=== PATIENT | female | born 1990 | race Caucasian/White ===

== ENCOUNTER 2018-08-25 10:48 | Inpatient (IN) ==
[2018-08-25] MEDS ORDERED: HUMULIN R IV ONE (11:08)
[2018-08-25] MEDS ORDERED: NS 1,000 ML IV ONE (11:08)
[2018-08-25] MEDS ORDERED: ZOFRAN IV ONE (11:09)
[2018-08-25 11:38] LABS: ALLEN TEST YES; BLOOD TYPE ARTERIAL; METHB 0.7 % (0.0-1.5); O2(CT) 21.5 mL/dL (15.0-23.0); O2HB 96.3 % (95.0-99.0); PO2(98.6) 121 mmHg (60-100); SAMPLE BLOOD; SAO2 99.3 % (95.0-100.0); THB 15.8 g/dL (11.5-17.4)
[2018-08-25 11:40] LABS: pH(98.6) 6.96 (7.35-7.45)
[2018-08-25 11:41] LABS: MODALITY ROOM AIR; PCO2(98.6) 10 mmHg (35-45)
[2018-08-25] MEDS ORDERED: HUMULIN R 100 UNIT in NS 100 ML IV SCH ×2 (11:45→12:51)
[2018-08-25 12:13] LABS: BASO# 0.03 X1000 (0.0-0.2); BASO% 0.2 % (0.0-0.8); EOS# 0.02 X1000 (0.0-0.7); EOS% 0.1 % (0.0-10.0); HEMATOCRIT 47.7 % (37.0-47.0); HEMOGLOBIN 16.6 g/dL (12.0-16.0); IMM GRAN# 0.11 X1000 (0.0-0.04); IMM GRAN% 0.7 % (0.0-0.5); LYMPH# 1.16 X1000 (1.2-3.4); LYMPH% 7.6 % (20.5-51.1); MCH 30.2 PG (27-31); MCHC 34.8 g/dL (33-37); MCV 86.9 FL (81-99); MONO# 0.16 X1000 (0.11-0.59); MONO% 1.1 % (1.7-9.3); MPV 12.8 FL (7.4-10.4); NEUT% 90.3 % (42.2-75.2); PLT 285 X1000 (130-400); RBC 5.49 XMIL (4.2-5.4); RDW 12.7 % (11.5-14.5); WBC 15.18 X1000 (4.8-10.8)
[2018-08-25 12:20] LABS: AGAP 23; ALB/GLOB RATIO 1.3; ALBUMIN 4.5 g/dL (3.5-5.0); ALKALINE PHOSPHATASE 126 U/L (32-104); BUN 12 mg/dL (8-22); CALCIUM 7.8 mg/dL (8.8-10.2); CHLORIDE 104 mmol/L (98-107); COSMO 276; CREATININE 0.9 mg/dL (0.5-0.9); ESTIMATED GFR > 60; GOT 7 U/L (10-30); GPT 7 U/L (10-36); MAGNESIUM 1.8 mg/dL (1.5-2.7); POTASSIUM 3.5 mmol/L (3.5-5.1); SODIUM 129 mmol/L (136-145); TCO2 2 mmol/L (25-35); TOTAL BILIRUBIN 0.19 mg/dL (0.20-1.00)
[2018-08-25 12:21] LABS: GLUCOSE 396 mg/dL (70-104)
[2018-08-25] MEDS ORDERED: SODIUM BICARBONATE 8.4% IV PUSH ONE (12:55)
[2018-08-25 13:05] LABS: BANDS 6 % (0-1); HYPOCHROM 1+; LYMPHS 8 % (21-51); SEGS 86 % (42-75)
[2018-08-25 13:06] LABS: LARGE PLATELETS 1+
[2018-08-25] MEDS ORDERED: ZOFRAN IV PRN (13:09)
[2018-08-25] MEDS ORDERED: TYLENOL PO PRN (13:09)
--- NOTE | 2018-08-25 14:31 | HISTORY AND PHYSICAL ---
PRIMARY CARE PROVIDER: No one but plans on getting established with Dr. Larsen on Monday. PRIMARY PANEL EDGE SEALER: Dr. Solorzano out of [place]. CHIEF COMPLAINT: Vomiting, shortness of breath. HISTORY OF PRESENT ILLNESS: Ms. Cristina Garza is a 28-year-old female with a medical history of diabetes mellitus type 1 since at least 2013, hypothyroidism, and abscesses in the past. She is here with 4 days complaint of vomiting and shortness of breath with some upper abdominal to ribcage pain, headache, and night sweats. Denies any fever or chills or any urinary- type symptoms at all. She has not been coughing up any phlegm. She also is recently with a new baby as of 02/22/2018 and quit smoking at the same time. Laboratory data reveals that she is severely acidotic with elevated blood glucose levels and an elevated anion gap, so we will admit to ICU, start on DKA protocol. Will work up her leukocytosis to evaluate for any type of infection. PAST MEDICAL HISTORY: 1. Diabetes mellitus type 1 since 2013. 2. Hypothyroidism. 3. Frequent abscesses in the past but it has been a while. PAST SURGICAL HISTORY: 1. Right buttock incision and drainage. 2. section, 02/22/2018. SOCIAL HISTORY: Quit smoking towards the beginning of 2018. She was a smoker from 2010 to 2018 less than 1 pack per day. Drinks alcohol maybe once every 6 months. Denies any illicit drug use. Currently a new mother of a little boy, who apparently is oxygen-dependent. FAMILY HISTORY: Mother had a heart attack at age 47. Father has hypertension. ALLERGIES: No known drug allergies. HOME MEDICATIONS: 1. Lispro 15 units subcutaneously sliding scale. 2. Lantus 25 units subcutaneously twice daily. 3. Synthroid 100 mcg p.o. daily. REVIEW OF SYSTEMS: A 14-point review of systems are complete and all were negative except for those mentioned above in HPI. PHYSICAL EXAMINATION: VITAL SIGNS: Temperature 97.4, heart rate 107, respiratory rate 23, blood pressure 124/95, O2 saturation 100% on room air. GENERAL: Ms. Cristina Garza is a 28-year-old female. She is in no acute distress. She is able to answer questions appropriately. HEENT: Atraumatic, normocephalic. Pupils equal, round, and reactive to light. Extraocular movements intact. Mucous membranes are dry. NECK: Trachea midline. CARDIOVASCULAR: S1, S2, regular rate and rhythm. No rubs, gallops, or murmurs. No lower extremity edema, +2 dorsalis and radial pulses. Negative JVD or carotid bruits. PULMONARY: Clear to auscultate, bilateral breath sounds. No accessory muscle use or work of breathing noted. GASTROINTESTINAL: Soft, nontender, nondistended, positive bowel sounds x4. EXTREMITIES: Moves all extremities equally with full range of motion. NEUROLOGIC: A and O x3, follows commands. Sensory is intact. SKIN: Warm, dry, intact. LABORATORY DATA: White blood cells 15,000, hemoglobin 16, hematocrit 47, platelet count 285. ABG: pH 6.96, pCO2 10, pO2 121, bicarb 3, base excess -28. Oxyhemoglobin 97.3. Lactate 1.5. Sodium 129, potassium 3.5, BUN 12, creatinine 0.9, glucose 396, calcium 7.8, magnesium 1.8, bilirubin 0.19, AST 7, ALT 7, albumin is 4.5. IMAGING: None yet. Waiting for EKG as well. ASSESSMENT AND PLAN: 1. Diabetes mellitus type 1 now with diabetic ketoacidosis and pretty significant acidosis. She has received sodium bicarbonate, started on IV fluids, and started on the algorithm 1 diabetic ketoacidosis protocol. Will watch her in the ICU, might could even go to [facility] later today. 2. Hypothyroidism. Checking a TSH and T4. Continue her Synthroid. 3. History of abscesses. She denies any recently. 4. Leukocytosis likely reactive due to the diabetic ketoacidosis. Cultures have been ordered and obtained. Will monitor for any signs of infection. 5. Nausea, vomiting. Antiemetics as needed. Should improve once acidosis improves. 6. Deep venous thrombosis prophylaxis, Lovenox. Dictated by STANISLAV Vasques for Caleb Pfeiffer MD cc: STANISLAV Vasques MD
[2018-08-25 14:49] LABS: ACETONE SERUM SMALL (NEGATIVE); AMYLASE 8 U/L (20-200); CK PROFILE 21 U/L (24-173); LIPASE 11 U/L (13-60)
--- NOTE | 2018-08-25 15:00 | Diag Imaging Result Doc PS360 ---
EXAM: FLAT/UPRIGHT ABD/1 VIEW CHEST INDICATION: sob; n/v TECHNIQUE: 3 views COMPARISON: None. FINDINGS: There are nonspecific colonic gas patterns. The colon is only mildly distended. There is no obstructive bowel pattern. There is no evidence of large volume free abdominal gas. There is no evidence of organomegaly. The lungs are grossly clear. There is no discrete pleural fluid collection or pneumothorax. The cardiomediastinal silhouette and central vasculature are grossly unremarkable. IMPRESSION: Nonspecific abdomen and no evidence of acute chest pathology. Electronically signed by Surendra Hurley 08/25/2018 2:57 PM
[2018-08-25 15:42] LABS: FREE T4 0.64 ng/dL (0.93-1.70); TSH 9.68 uIUmL (0.27-4.20)
[2018-08-25 15:46] LABS: HEMOGLOBIN A1C 17.8 % (4.8-6.0)
[2018-08-25] MEDS ORDERED: POTASSIUM CHLORIDE 10% LIQUID PO ONE (16:06)
[2018-08-25] MEDS ORDERED: POTASSIUM CHLORIDE 20% LIQUID ONE (16:16)
[2018-08-25 16:55] LABS: URINE SOURCE CLEAN CATCH
[2018-08-25 17:09] LABS: BILIRUBIN URINE NEGATIVE (NEGATIVE); BLOOD URINE TRACE (NEGATIVE); COLOR YELLOW; GLUCOSE URINE >1000 mg/dL (NEGATIVE); KETONE URINE >150 mg/dL (NEGATIVE); LEUKOCYTES URINE TRACE (NEGATIVE); NITRITE URINE NEGATIVE (NEGATIVE); PROTEIN URINE 200 mg/dL (NEGATIVE); SP GRAVITY URINE 1.025; TURBIDITY URINE CLEAR (CLEAR); UROBILINOGEN URINE NORMAL (NORMAL)
[2018-08-25 17:10] LABS: AGAP 21; BUN 11 mg/dL (8-22); CALCIUM 9.2 mg/dL (8.8-10.2); CHLORIDE 108 mmol/L (98-107); COSMO 275; CREATININE 0.8 mg/dL (0.5-0.9); GLUCOSE 194 mg/dL (70-104); POTASSIUM 3.9 mmol/L (3.5-5.1); SODIUM 135 mmol/L (136-145); TCO2 6 mmol/L (25-35)
[2018-08-25 17:13] LABS: PHOSPHORUS 0.8 mg/dL (2.7-4.5)
[2018-08-25 17:13] LABS: UR EPITHELIAL CELLS >10 /HPF (<10); URINE BACTERIA 2+ /HPF; URINE RBC <10 /HPF (<10)
[2018-08-25 17:18] LABS: UR AMPHETAMINES QUAL NONE DETECTED (NONE DETECT); UR BARBITUATES QUAL NONE DETECTED (NONE DETECT); UR BENZODIAZEPIN QUAL NONE DETECTED (NONE DETECT); UR CANNABINOIDS QUAL NONE DETECTED (NONE DETECT); UR COCAINE QUAL NONE DETECTED (NONE DETECT); UR METHADONE QUAL NONE DETECTED (NONE DETECT); UR OPIATES QUAL NONE DETECTED (NONE DETECT); UR OXYCODONE QUAL NONE DETECTED (NONE DETECT); UR PCP QUAL NONE DETECTED (NONE DETECT)
[2018-08-25] MEDS: NS 1,000 ML IV SCH ×4 (17:20→20:39)
[2018-08-25] MEDS ORDERED: POTASSIUM CHLORIDE 20% LIQUID PO PRN (17:45)
[2018-08-25] MEDS ORDERED: POTASSIUM CHLORIDE 40 MEQ/SWI 40 MEQ/100 ML IVPB IV PRN (17:45)
[2018-08-25] MEDS: D5 NS 1,000 ML IV SCH (17:52)
--- NOTE | 2018-08-25 17:54 | HISTORY AND PHYSICAL ---
ADDENDUM TO HISTORY AND PHYSICAL: I saw Ms. Garza today in the ICU. She has already been seen by the nurse practitioner. I have reviewed the H and P and details. I have also seen and examined Ms. Garza and I have reviewed her labs and imaging data. Briefly, Ms. Garza is a diabetic patient, type 1, who is on insulin regimen and follows up with an otr driver in [place]. Referred that she did have some diarrhea about a week ago and that got better, but then subsequently she started having some shortness of breath and vomiting, came to the emergency department and was found to be in DKA. Was then admitted for further medical care. ASSESSMENT: 1. Diabetic ketoacidosis with severe acidosis. Presenting bicarb was 2, pH was 6.96. Patient was given a push of bicarb and has been started on the diabetic ketoacidosis protocol. 2. Clinical volume depletion. Will continue with IV fluids. 3. Diabetes mellitus. 4. Hypothyroidism with elevated TSH consistent with inadequate supplementation. I have gone up on the patient's thyroid medications to 112 mEq on daily basis. Patient will need to repeat the TSH in about 2 weeks from now. 5. I do agree with the history and physical and the plan that has been laid out in detail in the nurse practitioner's note. cc: Caleb Pfeiffer MD
[2018-08-25] MEDS ORDERED: SODIUM BICARBONATE 8.4% 100 MEQ in STERILE WATER INJ. 500 ML IV PRN (18:00)
[2018-08-25] MEDS ORDERED: MAGNESIUM SULFATE 2 GM/S.W.I. 2 GM/50 ML IVPB IV PRN (18:00)
[2018-08-25] MEDS: POTASSIUM CHLORIDE 10% LIQUID PO PRN ×2 (18:10→23:06)
[2018-08-25] MEDS ORDERED: COMPAZINE IV PRN (18:15)
[2018-08-25] MEDS ORDERED: COMPAZINE PO PRN (18:15)
[2018-08-25] MEDS: SODIUM PHOSPHATE 30 MMOL in D5W 250 ML IV PRN (20:26)
[2018-08-25 22:39] LABS: AGAP 16; BUN 7 mg/dL (8-22); CALCIUM 7.4 mg/dL (8.8-10.2); CHLORIDE 114 mmol/L (98-107); COSMO 283; CREATININE 0.7 mg/dL (0.5-0.9); ESTIMATED GFR > 60; GLUCOSE 227 mg/dL (70-104); MAGNESIUM 1.5 mg/dL (1.5-2.7); POTASSIUM 3.9 mmol/L (3.5-5.1); SODIUM 139 mmol/L (136-145); TCO2 9 mmol/L (25-35)
[2018-08-26] MEDS: D5 NS 1,000 ML IV SCH ×2 (00:05→06:21)
[2018-08-26 01:28] LABS: ESTIMATED GFR > 60
[2018-08-26 01:29] LABS: AGAP 13; BUN 6 mg/dL (8-22); CALCIUM 7.3 mg/dL (8.8-10.2); CHLORIDE 116 mmol/L (98-107); COSMO 283; CREATININE 0.7 mg/dL (0.5-0.9); GLUCOSE 269 mg/dL (70-104); PHOSPHORUS 1.2 mg/dL (2.7-4.5); POTASSIUM 3.6 mmol/L (3.5-5.1); SODIUM 138 mmol/L (136-145); TCO2 9 mmol/L (25-35)
[2018-08-26] MEDS: POTASSIUM CHLORIDE 10% LIQUID PO PRN ×2 (01:52→09:22)
[2018-08-26] MEDS: NS 1,000 ML IV SCH (04:14)
[2018-08-26 05:23] LABS: ALLEN TEST YES; BE -13.6 mmoll (-3.0-3.0); BLOOD TYPE ARTERIAL; HCO3-(ACT) 14.3 mmoll (20.0-26.0); METHB 0.8 % (0.0-1.5); O2(CT) 18.1 mL/dL (15.0-23.0); O2HB 96.4 % (95.0-99.0); PCO2(98.6) 24 mmHg (35-45); PO2(98.6) 118 mmHg (60-100); SAMPLE BLOOD; SAO2 98.5 % (95.0-100.0); THB 13.2 g/dL (11.5-17.4); pH(98.6) 7.28 (7.35-7.45)
[2018-08-26 05:24] LABS: MODALITY ROOM AIR
[2018-08-26 06:35] LABS: INR 1.16; PROTIME 15.8 Seconds (11.0-16.0); PTT 21.4 Seconds (22.3-41.8)
[2018-08-26 06:36] LABS: BASO# 0.02 X1000 (0.0-0.2); BASO% 0.3 % (0.0-0.8); EOS# 0.08 X1000 (0.0-0.7); HEMATOCRIT 34.1 % (37.0-47.0); HEMOGLOBIN 12.1 g/dL (12.0-16.0); LYMPH# 2.51 X1000 (1.2-3.4); LYMPH% 32.9 % (20.5-51.1); MCHC 35.5 g/dL (33-37); MCV 84.4 FL (81-99); MONO# 0.83 X1000 (0.11-0.59); MONO% 10.9 % (1.7-9.3); MPV 12.7 FL (7.4-10.4); NEUT% 54.9 % (42.2-75.2); PLT 196 X1000 (130-400); RBC 4.04 XMIL (4.2-5.4); RDW 12.1 % (11.5-14.5); WBC 7.64 X1000 (4.8-10.8)
[2018-08-26] MEDS: SYNTHROID PO SCH (06:59)
[2018-08-26] MEDS ORDERED: SYNTHROID PO SCH (07:00)
[2018-08-26 07:08] LABS: AGAP 9; ALB/GLOB RATIO 1.2; ALKALINE PHOSPHATASE 77 U/L (32-104); BUN 5 mg/dL (8-22); CALCIUM 7.2 mg/dL (8.8-10.2); CHLORIDE 117 mmol/L (98-107); COSMO 282; CREATININE 0.6 mg/dL (0.5-0.9); ESTIMATED GFR > 60; GLUCOSE 253 mg/dL (70-104); GOT 6 U/L (10-30); GPT < 5 U/L (10-36); POTASSIUM 3.4 mmol/L (3.5-5.1); SODIUM 138 mmol/L (136-145); TCO2 12 mmol/L (25-35); TOTAL BILIRUBIN 0.37 mg/dL (0.20-1.00); TOTAL PROTEIN 5.5 g/dL (6.3-8.3)
[2018-08-26 07:13] LABS: PHOSPHORUS 0.7 mg/dL (2.7-4.5)
[2018-08-26] MEDS ORDERED: D5 1/2 NS + KCL 20 MEQ 1,000 ML IV SCH (07:30)
[2018-08-26] MEDS: SODIUM PHOSPHATE 30 MMOL in D5W 250 ML IV PRN (08:20)
[2018-08-26] MEDS: LOVENOX SUBQ SCH (08:20)
[2018-08-26 09:11] LABS: AGAP 11; BUN 5 mg/dL (8-22); CALCIUM 7.2 mg/dL (8.8-10.2); CHLORIDE 116 mmol/L (98-107); COSMO 283; CREATININE 0.5 mg/dL (0.5-0.9); ESTIMATED GFR > 60; GLUCOSE 212 mg/dL (70-104); POTASSIUM 3.6 mmol/L (3.5-5.1); SODIUM 140 mmol/L (136-145); TCO2 13 mmol/L (25-35)
[2018-08-26 09:14] LABS: PHOSPHORUS 0.7 mg/dL (2.7-4.5)
[2018-08-26] MEDS: 1/2 NS + KCL 20 MEQ 1,000 ML IV SCH ×2 (10:48→20:16)
--- NOTE | 2018-08-26 10:51 | PROGRESS NOTE ---
DATE: 08/26/2018 SUBJECTIVE: This morning, Ms. Garza refers to be doing a lot better. No nauseation. No abdominal pain. She thinks she will be able to eat. OBJECTIVE: Vital signs: Blood pressure is 108/70, pulse is 83, respiration 13, temperature is 98.4 degrees. General: Ms. Garza is a 28-year-old female. She is in bed. No distress. HEENT: Mucosa is pink and moist. Anicteric and acyanotic. Neck: Supple. Chest: Clear to auscultation. No crepitations. No rhonchi. Cardiovascular: Regular rate and rhythm. Abdomen: Soft, nontender. Bowel sounds present. Extremities: No pedal edema. Distal pulses present. PHP DEVELOPER: Patient is awake, alert, and oriented. There is no focal neurological deficit. LABORATORY DATA: This morning, WBC is down to 7.64, hemoglobin is 12.1, platelet count of 196,000. Chemistry is also reviewed. Sodium is 140, potassium is 3.6, chloride is 116, bicarb is 13, gap is 11, glucose is 212, phosphorus is 0.7, which has been replaced. So far, blood cultures have not grown anything. Urinalysis was unremarkable for any suspicious infection. ASSESSMENT: 1. Diabetic ketoacidosis is currently resolved. We will start the patient on Lantus and sliding scale and transition her off the protocol. 2. Clinical volume depletion. We are going to continue with the IV fluids. We will, however, change to half-normal saline with potassium for baseline fluid. 3. Hypothyroidism. We will continue with the current supplements. 4. Diabetes mellitus type 1. The patient is on insulin regimen and we will plan to continue her home regimen and titrate it accordingly. PLAN: So, in general, I think Ms. Garza is doing a lot better today. She has not nauseated. We are going to feed her, after which we will give her 25 units of Lantus and let the drip overlap for 2 hours. At the end of the 2 hours, we will turn off the drip and supplement her needs with just sliding scale. We will also continue with IV fluids. Repeat her chemistry 4 hours from now. If she continues to be stable, we will be able to transfer her out of the unit. cc: Caleb Pfeiffer MD Addendum: Patient tolerated meals well. Doing ok. Hemodynamically stable. Will transfer to medical floor. Possible discharge home tomorrow. ELI
[2018-08-26] MEDS ORDERED: HUMULIN R SUBQ SCH (11:00)
[2018-08-26] MEDS: LANTUS INSULIN SUBQ SCH ×2 (11:20→20:07)
[2018-08-26 13:37] LABS: ESTIMATED GFR > 60
[2018-08-26 13:52] LABS: AGAP 11; BUN 3 mg/dL (8-22); CALCIUM 7.5 mg/dL (8.8-10.2); CHLORIDE 110 mmol/L (98-107); COSMO 279; CREATININE 0.6 mg/dL (0.5-0.9); GLUCOSE 292 mg/dL (70-104); PHOSPHORUS 1.5 mg/dL (2.7-4.5); POTASSIUM 3.5 mmol/L (3.5-5.1); SODIUM 136 mmol/L (136-145); TCO2 15 mmol/L (25-35)
[2018-08-26] MEDS: HUMULIN R SUBQ SCH ×2 (15:16→20:00)
[2018-08-26] MEDS: HUMALOG SUBQ SCH (16:58)
[2018-08-27 06:36] LABS: AGAP 11; BUN 2 mg/dL (8-22); CALCIUM 7.7 mg/dL (8.8-10.2); CHLORIDE 115 mmol/L (98-107); COSMO 285; CREATININE 0.4 mg/dL (0.5-0.9); ESTIMATED GFR > 60; GLUCOSE 94 mg/dL (70-104); POTASSIUM 2.9 mmol/L (3.5-5.1); SODIUM 145 mmol/L (136-145); TCO2 19 mmol/L (25-35)
[2018-08-27] MEDS: SYNTHROID PO SCH (06:37)
[2018-08-27] MEDS: HUMULIN R SUBQ SCH ×2 (06:38→11:07)
[2018-08-27] MEDS: 1/2 NS + KCL 20 MEQ 1,000 ML IV SCH (06:41)
[2018-08-27] MEDS: HUMALOG SUBQ SCH ×3 (07:19→21:08)
--- NOTE | 2018-08-27 08:06 | EKG Report ---
Test Performed on : 08/26/2018 06:17:50 AM Test Reason : dka Blood Pressure : / mmHG Vent. Rate : 090 BPM Atrial Rate : 090 BPM P-R Int : 150 ms QRS Dur : 088 ms QT Int : 416 ms P-R-T Axes : 046 019 045 degrees QTc Int : 508 ms Normal sinus rhythm. Nonspecific T wave abnormality Prolonged QT Abnormal ECG No previous ECGs available Confirmed by Alivia CORDOVA, Ajit ([id number]) on 08/27/2018 9:17:35 AM
[2018-08-27] MEDS: LANTUS INSULIN SUBQ SCH ×2 (11:07→21:06)
[2018-08-27] MEDS: LOVENOX SUBQ SCH (11:07)
[2018-08-27] MEDS ORDERED: POTASSIUM CHLORIDE 60 MEQ in NS 500 ML IV ONE (12:59)
[2018-08-27] MEDS ORDERED: SODIUM PHOSPHATE 35 MMOL in NS 250 ML IV ONE (13:01)
--- NOTE | 2018-08-27 13:56 | PROGRESS NOTE ---
DATE: 08/27/2018 SUBJECTIVE: Patient reports feeling fine. Denies any nausea or vomiting. OBJECTIVE: Vital Signs: Temperature 98.1 degrees, heart rate 92, respiratory rate 18, and blood pressure 124/81, O2 saturation 98% on room air. General: This is a 28-year-old female lying in bed in no acute distress. Cardiovascular: S1, S2 heard. No murmurs, gallops, or rubs. Regular rate and rhythm. Respiratory: Clear bilaterally to auscultation. No work of breathing or using accessory muscles. Abdomen: Soft. Nontender to palpation. Bowel sounds present. No organomegaly. Extremities: No clubbing, cyanosis, or edema. Peripheral pulses present in both legs. Neurological: Patient alert and oriented x3. Moves all 4 extremities. LABORATORY DATA: Reviewed. ASSESSMENT AND PLAN: 1. Diabetic ketoacidosis resolved. Patient is on Lantus and sliding scale insulin, moderate level. We found out that this patient has potassium 2.9 as well as phosphorus from yesterday that was very low. We are going to recheck it today, and is 1.4. We are going to replenish both electrolytes and will check it tomorrow. 2. Hypothyroidism. Will continue with home medications. 3. Diabetes mellitus type 2. Poorly controlled with hemoglobin A1c of 17.8. Patient advised properly about the long-term consequence of not having a good diabetes. 4. Disposition: If electrolytes are okay tomorrow, she can be discharged. cc: Anup Kirkpatrick MD
[2018-08-27] MEDS: NS 1,000 ML IV SCH (14:24)
[2018-08-28] MEDS: NS 1,000 ML IV SCH (06:21)
[2018-08-28] MEDS: SYNTHROID PO SCH (06:52)
[2018-08-28] MEDS: HUMALOG SUBQ SCH ×2 (06:53→12:35)
[2018-08-28 07:05] LABS: HEMATOCRIT 31.7 % (37.0-47.0); HEMOGLOBIN 11.5 g/dL (12.0-16.0); MCH 30.9 PG (27-31); MCHC 36.3 g/dL (33-37); MCV 85.2 FL (81-99); RBC 3.72 XMIL (4.2-5.4); RDW 12.4 % (11.5-14.5); WBC 6.18 X1000 (4.8-10.8)
[2018-08-28 07:35] LABS: AGAP 11; BUN 6 mg/dL (8-22); CALCIUM 7.5 mg/dL (8.8-10.2); CHLORIDE 109 mmol/L (98-107); COSMO 283; CREATININE 0.3 mg/dL (0.5-0.9); ESTIMATED GFR > 60; GLUCOSE 114 mg/dL (70-104); PHOSPHORUS 3.3 mg/dL (2.7-4.5); POTASSIUM 2.7 mmol/L (3.5-5.1); SODIUM 143 mmol/L (136-145); TCO2 23 mmol/L (25-35)
[2018-08-28] MEDS: LOVENOX SUBQ SCH (10:05)
[2018-08-28] MEDS: LANTUS INSULIN SUBQ SCH (10:12)
[2018-08-28 12:08] VITALS: BP 101/61
--- NOTE | 2018-08-28 20:49 | DISCHARGE SUMMARY ---
ADMISSION DATE: 08/25/2018 DISCHARGE DATE: 08/28/2018 DISPOSITION: Home. FOLLOWUP: 1. Will be with Dr. Alex Larsen. 2. dietitian. CONSULTATION DURING THIS ADMISSION: None. IMAGING STUDIES OF SIGNIFICANCE: A KUB showed no specific abdominal pathology. ADMISSION DIAGNOSES: 1. Diabetic ketoacidosis. 2. Severe volume depletion. 3. Hypothyroidism. DIAGNOSES AT THE TIME OF DISCHARGE: 1. Uncontrolled diabetes mellitus with diabetic ketoacidosis on presentation, resolved. 2. Diabetes type 1 with presenting A1c of 17.8 consistent with noncompliance. 3. Clinical volume depletion, improved. 4. Hypothyroidism. 5. Medical noncompliance. Patient has been advised. DISCHARGE MEDICATIONS: 1. Insulin glargine 25 units b.i.d. 2. Levothyroxine 112 mcg p.o. daily. 3. Lispro 3 times per day with meals. PRESENTING COMPLAINT: Vomiting and shortness of breath. HISTORY OF PRESENTING COMPLAINT: Ms. Garza is a 28-year-old female who is known to have diabetes mellitus type 1 and hypothyroidism, presented to the emergency department because of generalized weakness after vomiting, also shortness of breath. The patient was evaluated. Was found to have a bicarb of 2, on admission was remarkably dehydrated, was evaluated and admitted to the ICU for critical care management. HOSPITAL COURSE: Ms. Garza was admitted to the ICU, adequately hydrated. DKA protocol was instituted. She did respond very well to the protocol and she was transferred out of the ICU after a day in the unit. She continued to improve. Glucose was much better controlled and hydration status also improved. She was able to tolerate her diabetic diet. This morning, Ms. Garza refers to be feeling a whole lot better. She is stable for discharge. Her vitals: Blood pressure is 101/62, pulse is 79, respiration is 20, temperature is 98.6. The patient is saturating 100% on room air. Physical exam is unremarkable. Ms Garza is clinically stable for discharge. All the discharge instructions have been discussed with her and she voiced understanding. She has been given a prescription for her home insulin as well as her thyroid medications and she has been counseled on compliance and also compliance with medication and with medical followup appointments. TIME SPENT: Time spent for discharge is 37 minutes. cc: MD Alex Godinez MD [facility]
== END 2018-08-28 12:50 | disposition home or self-care (01) | DRG 639 ==
LOC: ED 10:48 → ICU 13:44 → SUATTDRO 13:44 → 3N 08-27 07:42
PROVIDERS: ATTEND Internal Medicine
CPT/HCPCS: 74022; 80048; 80053; 80061; 80101; 80301; 80307; 80324; 80345; 80346; 80353; 80358; 80361; 80365; 81001; 81025; 82009; 82150; 82330; 82550; 82805; 82948; 83036; 83605; 83690; 83721; 83735; 83992; 84100; 84145; 84439; 84443; 84484; 84703; 85025; 85027; 85610; 85730; 87040; 87088; 93005; 93010; 94761; 94799; 96374; 99285; A9270; G0431; G0434; G0479; G0480; J0780; J1650; J1815; J2405; J3475; J3480; J7030; J7040; J7042; J7050; J7060; XXXXX